=== PATIENT | female | born 1990 | race Caucasian/White ===

== ENCOUNTER → 2016-11-07 | Outpatient (CLI) | payer OTHER ==
[~2016-11-07] MED LIST: ACET1TAB43 PO; ASCO100T6 PO; BETA6VIA IJ; DOCU100C37 PO; FERR-65 PO; IBUP-1773 PO; PREN-37 PO
--- NOTE | 2016-11-07 14:21 | Diagnostic Imaging Report ---
PROCEDURE: US Thyroid. TECHNIQUE: Multiple real-time grayscale images were obtained of the thyroid in various projections. INDICATION: Abnormal labs. FINDINGS: The right thyroid lobe is 4.9 x 1.3 x 1.8 cm. The left lobe is 4.0 x 1.6 x 1.6 cm. The thyroid parenchyma is fairly homogeneous. There is a nonspecific hypoechoic nodule measuring 0.3 x 0.3 x 0.4 cm in the inferior aspect of the left thyroid lobe. No definite internal vascularity seen. IMPRESSION: Nonspecific tiny 0.4 cm hypoechoic nodule in the inferior left thyroid lobe, of questionable significance. Dictated by: Dictated on workstation # [id number]
== END ==
LOC: RAD 13:39
PROVIDERS: ATTEND Family Medicine
DX: E04.1 Nontoxic single thyroid nodule (principal)
CPT/HCPCS: 76536

== ENCOUNTER → 2017-04-06 | Outpatient (CLI) | payer BC, OTHER | LOC: RT 08:12 | PROVIDERS: ATTEND Nurse Practitioner Family | DX: R56.9 Unspecified convulsions (principal) | CPT/HCPCS: 95819 ==

== ENCOUNTER 2017-04-12 10:00 | Outpatient (CLI) | payer BC | END 2017-04-12 10:20 | disposition home or self-care (01) | LOC: SLEEP 10:00 | PROVIDERS: ATTEND Nurse Practitioner Family | DX: G47.10 Hypersomnia, unspecified (principal); R06.83 Snoring ==

== ENCOUNTER → 2017-04-17 | Outpatient (CLI) | payer BC ==
[~2017-04-17] MED LIST changes: +GADOBUTROL 15 MMOL/15 ML (GADAVIST) VIAL IV ONE
== END ==
LOC: RAD 10:44
PROVIDERS: ATTEND Nurse Practitioner Family
DX: R56.9 Unspecified convulsions (principal); R51 Headache
CPT/HCPCS: 70553

== ENCOUNTER 2018-12-06 07:00 | Inpatient (IN) | payer BC, OTHER ==
[2018-12-06] VITALS (60 sets, daily range): BP systolic 102–142; BP diastolic 55–80
[~2018-12-06] VITALS: Ht 170.2 cm; Wt 122.0 kg
[~2018-12-06 07:00] MED LIST changes: -GADOBUTROL 15 MMOL/15 ML (GADAVIST) VIAL IV ONE
--- NOTE | 2018-12-06 07:00 | NUR ---
Arrived to unit ambulates self accompanied by s.o. for induction of labor. Wt obtained and to room 320. gowned and to bed. monitors on. oriented to room, call light and surroundings.
[2018-12-06] MEDS ORDERED: OXYTOCIN/NORMAL SALINE 500 ML IV SCH ×2 (08:25→21:05)
[2018-12-06] MEDS ORDERED: D5 LR IV SOLUTION 1,000 ML IV ONE (08:30)
[2018-12-06] MEDS ORDERED: OXYTOCIN/NORMAL SALINE 500 ML IV ONE (08:30)
[2018-12-06 08:32] LABS: BASOPHILS % (AUTO) 0 % (0-10); EOSINOPHILS % (AUTO) 0 % (0-10); HEMATOCRIT 33 % (35-52); HEMOGLOBIN 11.3 G/DL (11.5-16.0); LYMPHOCYTES # (AUTO) 1.9 X 10^3 (1.0-4.0); LYMPHOCYTES % (AUTO) 24 % (12-44); MEAN CORPUSCULAR HEMOGLOBIN 32 PG (25-34); MEAN CORPUSCULAR HGB CONC 34 G/DL (32-36); MEAN CORPUSCULAR VOLUME 94 FL (80-99); MEAN PLATELET VOLUME 11.1 FL (7.4-10.4); MONOCYTES # (AUTO) 0.7 X 10^3 (0.0-1.0); MONOCYTES % (AUTO) 10 % (0-12); NEUTROPHILS # (AUTO) 5.1 X 10^3 (1.8-7.8); NEUTROPHILS % (AUTO) 66 % (42-75); PLATELET COUNT 192 10^3/uL (130-400); WHITE BLOOD COUNT 7.7 10^3/uL (4.3-11.0)
[2018-12-06] MEDS: D5 LR IV SOLUTION 1,000 ML IV SCH ×2 (08:41→15:25)
[2018-12-06] MEDS ORDERED: LEVE100015 PO (10:04)
[2018-12-06] MEDS ORDERED: FOLI1TAB24 PO (10:04)
[2018-12-06] MEDS ORDERED: SUFENTA 0.6MCG/ML BUPIVA 0.125 100 ML ONE (10:06)
[2018-12-06] MEDS: EPIDURAL (SUFENTA 0.6MCG/ML BUPIVA 0.125%) 100 ML BAG EPI SCH ×2 (10:49→18:23)
[2018-12-06] MEDS ORDERED: LACTATED RINGERS 1,000 ML IV SCH (10:56)
[2018-12-06] MEDS ORDERED: METOCLOPRAMIDE INJ 10 MG/2 ML (REGLAN) IV PRN (11:00)
[2018-12-06] MEDS ORDERED: ONDANSETRON 4 MG/2 ML (SDV) Z0FRAN IV PRN (11:00)
[2018-12-06] MEDS ORDERED: NALOXONE 0.4 MG/ML 1 ML (NARCAN) VIAL IV PRN ×2 (11:00)
[2018-12-06] MEDS ORDERED: diphenhydrAMINE 50 MG/ML INJ (BENADRYL) IV PRN (11:00)
[2018-12-06] MEDS ORDERED: LIDOCAINE/EPI 2% 1:200,00 (XYLOCAINE) 10 ML VIAL ONE (19:27)
--- NOTE | 2018-12-06 19:52 | NUR ---
Dr. Vergara called and informed that pt is 9cm with a small lip of cervix remaining. Informed that pt is starting to feel uncomfortable and is having variable decelerations down to the 80s with contractions. orders epidural to be turned off and states that he will be out shortly.
--- NOTE | 2018-12-06 20:00 | NUR ---
Epidural turned off at this time.
--- NOTE | 2018-12-06 20:40 | NUR ---
2039: Pericare provided to pt. Fundus massaged at this time. Fundus is firm, midline and one under umbilicus. Moderate bleeding noted. 2054: Fundus is firm, midline and one under umbilicus. Minimal bleeding noted. 2114: Fundus is firm, midline and one under umbilicus. Minimal bleeding noted. Ice pack applied to perineum at this time. 2134: Fundus is firm, midline and at umbilicus. Moderate bleeding noted. 2209: Fundus is firm, midline and at umbilicus. Minimal bleeding noted. Pt. is sat up to eat at this time. Ice water refilled. Pt states that she can move her legs. Nurse explains to pt that when she is done eating we will use the restroom and move to new room.
[2018-12-06] MEDS ORDERED: KETOROLAC 30 MG/ML VIAL ONE (21:06)
[2018-12-06] MEDS ORDERED: MEASLES,MUMPS,RUBELLA 1 EA INJ SC ONE (21:15)
[2018-12-06] MEDS ORDERED: ONDANSETRON 4 MG/2 ML (SDV) Z0FRAN IVP PRN (21:15)
[2018-12-06] MEDS ORDERED: oxyCODONE/APAP 5/325MG (PERCOCET 5) TABLET PO PRN (21:15)
[2018-12-06] MEDS ORDERED: TETANUS,DIPTH,PERTUSS P/F (BOOSTRIX) 0.5 ML VIAL IM ONE (21:15)
[2018-12-06] MEDS: KETOROLAC 30 MG/ML VIAL IVP PRN (21:15)
[2018-12-06] MEDS ORDERED: BENZOCAINE/MENTHOL (DERMOPLAST) 56 ML CAN TP PRN (21:15)
[2018-12-06 22:43] LABS: ABG BASE EXCESS -1.7 MMOL/L (-2.5-2.5); ABG OXYGEN SATURATION 25 % (94-100); ABG PCO2 58 MMHG (35-45); ABG PO2 25 MMHG (79-93); CORD ARTERIAL BLOOD PH 7.25 (7.35-7.45); INSPIRED O2 N
--- NOTE | 2018-12-06 23:00 | NUR ---
Pt. gotten out of bed with nurse standby assist. Transferred to bathroom. Xiao care given. Pad and underwear put on. Clean gown put on. Pt states that she was only able to void a small amount still leaving her bladder feeling full. Xiao bottle and Dermoplast spray reviewed with pt at this time. Pt then transferred to wheelchair and moved to room.
--- NOTE | 2018-12-07 00:20 | NUR ---
Nurse at pt bedside. Pt states that she was able to void a significant amount. Fundus massaged at this time. Firm and one under umbilicus. Midline. Minimal bleeding noted at this time.
[2018-12-07 02:28] VITALS: BP 122/80
--- NOTE | 2018-12-07 02:54 | OPERATIVE REPORT ---
DATE OF SERVICE: 12/06/2018 DELIVERY NOTE The patient delivered by term spontaneous vaginal delivery, viable female with Apgars of 8 and 9 at 1 and 5 minutes respectively, weight of 8 pounds 3 ounces. time of 20:26. Cord blood gas is pending. The patient delivered over a second-degree perineal laceration under epidural analgesia augmented with local analgesia and the perineal body. The infant was bulb suctioned on delivery of the head and again on completion of delivery. The umbilical cord was doubly clamped, father cut the cord, the baby was passed to mom's abdomen. Placenta delivered fairly promptly spontaneously Cheng. It was normal with a 3-vessel cord. The cervix, vagina, rectum, perineum were examined and found intact except for the second-degree perineal laceration that was repaired with a single suture of 2-0 Vicryl Rapide in the usual manner without difficulty to good reapproximation and good hemostasis. The patient tolerated the delivery and the repair well and remained in the LDR for recovery. The baby remained with the mom. Job ID: [id number] DocumentID: [id number] Dictated Date: 12/06/2018 20:42:00 Client Support Manager Date: 12/07/2018 02:53:04 Dictated By: KIN THORNE MD
[2018-12-07] MEDS: KETOROLAC 30 MG/ML VIAL IVP PRN (03:29)
[2018-12-07 06:21] VITALS: BP 116/75
--- NOTE | 2018-12-07 07:25 | Progress Note-Standard ---
Standard Progress Note Progress Notes/Assess & Plan Date Seen by a Provider: December 07, 2018 Time Seen by a Provider: 07:24 Progress/Assessment & Plan This patient is without complaint. She is ambulating, voiding, tolerating oral intake well and has good pain control. Patient denies chest pain, denies shortness of breath, denies nausea vomiting, denies headache. Vital Signs 12/07/18 06:21 Temp 98.2 Pulse 71 Resp 18 B/P (MAP) 116/75 (89) Pulse Ox 97 O2 Delivery Room Air Vital signs are stable. Patient is afebrile. Fundus is firm below the umbilicus and nontender. Extremities show no clubbing cyanosis. There is no Homans sign. Assessment and plan day number 1 status post term spontaneous vaginal delivery doing well. Plan is routine, last period day and discharged home tomorrow Final Diagnosis Term spontaneous vaginal delivery at 38 4/7 weeks' gestation KIN THORNE MD December 07, 2018 07:24
[2018-12-07] MEDS ORDERED: DOCU100C37 PO (07:27)
[2018-12-07] MEDS ORDERED: OXYC1TAB87 PO (07:27)
[2018-12-07] MEDS ORDERED: IBUP-1780 PO (07:27)
--- NOTE | 2018-12-07 07:28 | Discharge Instructions ---
Discharge Instructions Discharge Medications New, Converted or Re-Newed RX: RX on Chart Patient Instructions Patient Instructions: as directed Return to The Hospital For: As directed Activity & Diet Discharge Diet: No Restrictions Activity as Tolerated: No Orders-Post D/C & Referrals Follow Up Appt: Call to make follow up appt. for patient in 4 weeks. Activity Per routine post vaginal delivery instructions. Please call in RX to patient pharmacy. Diet as tolerated Patient may shower or tub bathe as desired. KIN THORNE MD December 07, 2018 07:28
--- NOTE | 2018-12-07 07:30 | NUR ---
Dr Vergara here to see pt. No new orders rec'd
[2018-12-07 09:49] VITALS: BP 127/61
[2018-12-07] MEDS: IBUPROFEN 800 MG (MOTRIN) TAB PO SCH ×3 (09:50→21:34)
[2018-12-07] MEDS: DOCUSATE SODIUM 100 MG (COLACE) CAP PO SCH ×2 (09:51→21:34)
--- NOTE | 2018-12-07 10:03 | Anesthesia-Regional Post-Op ---
Regional Patient Condition Mental Status: Alert, Oriented x3 Circulation: Same as Pre-Op Headache: Absent Sensation: Full Recovery Post Op Complications Complications None Follow Up Care/Instructions Patient Instructions None needed. Anesthesia/Patient Condition Patient is doing well, no complaints, stable vital signs, no apparent adverse anesthesia problems. No complications reported per nursing. D/C home per [facility] [place] Criteria: Yes NICK LINDA CRNA December 07, 2018 10:03
[2018-12-07 12:00] VITALS: BP 118/60
[2018-12-07 16:05] VITALS: BP 123/64
[2018-12-07 20:23] VITALS: BP 121/61
[2018-12-08 02:15] VITALS: BP 111/72
[2018-12-08] MEDS: IBUPROFEN 800 MG (MOTRIN) TAB PO SCH ×2 (03:30→09:53)
--- NOTE | 2018-12-08 09:45 | NUR ---
Dr Vergara called to unit for update. planning to round, but not until closer to 1200. Pt may D/C to home prior to rounding if pt desires.
[2018-12-08 09:52] VITALS: BP 123/66
[2018-12-08] MEDS: DOCUSATE SODIUM 100 MG (COLACE) CAP PO SCH (09:53)
--- NOTE | 2018-12-08 10:00 | NUR ---
Scripts discussed with pt, pt desires to take own ibuprofen and stool softener vs calling in new scripts.
--- NOTE | 2018-12-08 10:50 | NUR ---
Discharge instructions explained to pt with copy provided to pt. Pt notified of need to schedule follow up. Pt verbalizes understanding of instructions, denies questions or concerns at this time. Extra pads provided per pt request. Pt notified of need for nursery instructions as well prior to leaving.
--- NOTE | 2018-12-08 13:06 | Progress Note-Standard ---
Standard Progress Note Progress Notes/Assess & Plan Date Seen by a Provider: December 08, 2018 Time Seen by a Provider: 13:05 Progress/Assessment & Plan This patient is without complaint. She is ambulating, voiding, tolerating oral intake well and has good pain control. Patient denies chest pain, denies shortness of breath, denies nausea vomiting, denies headache. Vital Signs 12/07/18 06:21 Temp 98.2 Pulse 71 Resp 18 B/P (MAP) 116/75 (89) Pulse Ox 97 O2 Delivery Room Air Vital signs are stable. Patient is afebrile. Fundus is firm below the umbilicus and nontender. Extremities show no clubbing cyanosis. There is no Homans sign. Assessment and plan day number 1 status post term spontaneous vaginal delivery doing well. Plan is routine, last period day and discharged home tomorrow December 08, 2018 Patient is without complaint. She is ambulating, voiding, tolerating oral intake well and has good pain control. Patient is requesting discharge home. Vital Signs Date Time Temp Pulse Resp B/P (MAP) Pulse Ox O2 Delivery O2 Flow Rate FiO2 12/08/18 09:52 98.4 67 18 123/66 (85) 98 Room Air 12/08/18 02:15 98.3 63 16 111/72 (85) 98 Room Air 12/07/18 20:23 98.4 66 18 121/61 (81) 97 Room Air 12/07/18 16:05 98.2 70 18 123/64 (83) 98 Room Air Vital signs are stable. Patient is afebrile. Fundus is firm below the umbilicus and nontender. Examination showed no clubbing cyanosis. There is no Homans sign. Assessment and plan day number 2 status post spontaneous vaginal delivery doing well. Plans for discharge home with follow-up in clinic Final Diagnosis Current spontaneous vaginal delivery KIN THORNE MD December 08, 2018 13:06
--- NOTE | 2018-12-08 13:10 | NUR ---
Pt ambulates off unit accompanied by Ivone recio RN, to private vehicle. All personal belongings with pt. No s/s of distress noted.
--- NOTE | 2018-12-14 09:02 | History & Physical ---
History and Physical Date Seen by Provider: December 06, 2018 Time Seen by Provider: 07:30 This patient is a 28-year-old white female who is admitted at 38 weeks gestation for induction of labor secondary to her history of seizure disorder with progression of her symptoms in spite of anti-epileptic medication. Her neurologist had indicated that delivery would be appropriate as early as deemed practical. Patient was admitted for Pitocin induction. She denied ruptured membranes or bleeding. Her GBS culture was negative. Allergies none Medications are vitamins and Keppra Medical social and surgical histories are per the antepartum record HEENT exam is normal Neck supple no lymphadenopathy no thyromegaly Abdomen is gravid soft nontender nondistended Extremities show no clubbing cyanosis. There is some pretibial pitting edema that was normal. Patient had no Homans sign. Pelvic exam was per the nurse's exam Assessment and plan term at 38 weeks' gestation in a patient with epilepsy on Keppra. She required increasing her Keppra for control of symptoms. She is admitted at 38 weeks gestation for labor induction 38 weeks gestation with seizure disorder Allergies and Home Medications Allergies Coded Allergies: No Known Drug Allergies (Unverified , 06/05/14) Home Medications Docusate Sodium 100 Mg Capsule, 100 MG PO BID Prescribed by: KIN TINOCO on 12/07/18726 Folic Acid 1 Mg Tablet, 1 MG PO QID, (Reported) Ibuprofen 800 Mg Tablet, 800 MG PO Q6HR Prescribed by: KIN TINOCO on 12/07/18726 Levetiracetam 1,000 Mg Tablet, 1,000 MG PO BID, (Reported) Oxycodone HCl/Acetaminophen 1 Each Tablet, 1-2 TAB PO Q4H PRN for PAIN-MODERATE Prescribed by: KIN TINOCO on 12/07/18726 Vit/Iron Fumarate/FA 1 Each Tablet, 1 EACH PO DAILY, (Reported) Patient Home Medication List Home Medication List Reviewed: Yes Clinical Quality Measures DVT/VTE Risk/Contraindication: Risk Factor Score Per Nursin RFS Level Per Nursing on Admit: 1=Low/No VTE PPX KIN THORNE MD Dec 14, 2018 09:02
== END 2018-12-08 13:10 | disposition home or self-care (01) | DRG 807 ==
LOC: LDRP 07:15
PROVIDERS: ADMIT Obstetrics & Gynecology; ATTEND Obstetrics & Gynecology
PROC: 10E0XZZ Delivery of Products of Conception, External Approach (ICD-10-PCS; principal; 2018-12-06)
PROC: 0KQM0ZZ Repair Perineum Muscle, Open Approach (ICD-10-PCS; 2018-12-06)
DX: O99.353 Diseases of the nervous system complicating pregnancy, third trimester (principal); G40.909 Epilepsy, unspecified, not intractable, without status epilepticus; O70.1 Second degree perineal laceration during delivery; Z3A.38 38 weeks gestation of pregnancy; Z37.0 Single live birth; Z79.899 Other long term (current) drug therapy
CPT/HCPCS: 36415; 82805; 85025; 86850; 86900; 86901; 88307

== ENCOUNTER 2019-09-04 05:40 | Outpatient (CLI) | payer OTHER ==
[~2019-09-04] VITALS: Ht 170.2 cm; Wt 102.3 kg
[~2019-09-04 05:40] MED LIST changes: +FOLI1TAB24 PO; +IBUP-1780 PO; +LEVE100015 PO; +OXYC1TAB87 PO
[2019-09-04] MEDS ORDERED: ESCI20TA45 PO (12:15)
[2019-09-04] MEDS ORDERED: LEVE500T6 PO (12:15)
[2019-09-04] MEDS ORDERED: SPIR25TA5 PO (12:15)
== END 2019-09-04 13:10 | disposition home or self-care (01) ==
LOC: PREOP 05:40
PROVIDERS: ATTEND Obstetrics & Gynecology
DX: Z01.818 Encounter for other preprocedural examination (principal)

== ENCOUNTER 2020-01-09 19:15 | Emergency (ER) | payer OTHER ==
[~2020-01-09] VITALS: Ht 172 cm; Wt 111.0 kg
[~2020-01-09 19:15] MED LIST changes: +DOCU-143 PO; +ESCI20TA45 PO; +LEVE500T6 PO; +SPIR25TA5 PO
[2020-01-09] MEDS ORDERED: LACTATED RINGERS 1,000 ML IV ONE (19:27)
[2020-01-09] MEDS ORDERED: KETOROLAC 30 MG/ML VIAL IVP ONE (19:30)
--- NOTE | 2020-01-09 19:32 | ED EENT ---
History of Present Illness General Chief Complaint: Oral/Throat Problems Stated Complaint: DIFFICULTY SWALLOWING Source: patient Exam Limitations: no limitations History of Present Illness Date Seen by Provider: Jan 09, 2020 Time Seen by Provider: 19:13 Initial Comments Patient presents ER by private conveyance with chief complaint of 2 days grossly worsening sore throat difficulty swallowing fluids inability to eat. She went and saw Dr. Santana's office earlier today and was given a shot of steroids and put on antibiotic twice a day. She's taken 1 dose of antibiotics. She feels it's gotten worse even since seeing her primary care office. No past history of surgery on her nose or throat. No known sick contacts. No fever but she had temperature of 100.0 earlier today. No cough shortness of air. He says it is painful to swallow her own secretions. She did not choke on any foreign object. No history of GERD or EGDs. She doesn't history of hysterectomy after having found a polyp. She is using multiple [id number]-kyh-sfydyxq lozenges and medicines. Allergies and Home Medications Allergies Coded Allergies: No Known Drug Allergies (Unverified , 06/05/14) Home Medications Docusate Sodium 100 Mg Capsule, 100 MG PO BID Prescribed by: KIN TINOCO on 09/12/19 1235 Escitalopram Oxalate 20 Mg Tablet, 20 MG PO DAILY, (Reported) Ibuprofen 800 Mg Tablet, 800 MG PO Q6H PRN for PAIN Prescribed by: KIN TINOCO on 09/12/19 1235 Levetiracetam 500 Mg Tablet, 1,000 MG PO BID, (Reported) take 2 (500mg) tabs Oxycodone HCl/Acetaminophen 1 Each Tablet, 1 TAB PO Q4H Prescribed by: KIN TINOCO on 09/12/19 1235 Spironolactone 25 Mg Tablet, 25 MG PO DAILY, (Reported) Patient Home Medication List Home Medication List Reviewed: Yes Review of Systems Review of Systems Constitutional: No chills, No diaphoresis Eyes: Denies Blindness, Denies Blurred Vision, Denies Drainage Ears: Denies Dizziness, Denies Pain Nose: denies clots, denies congestion Mouth: denies pain, denies swelling Throat: pain, swelling; denies neck stiffness; hoarse, painful swallowing, difficulty with fluids Respiratory: No cough, No phlegm Cardiovascular: No chest pain, No edema Gastrointestinal: No abdominal pain, No nausea, No vomiting All Other Systems Reviewed Negative Unless Noted: Yes Past Yyjmfrt-Lstydz-Yvsgej Hx Patient Social History Alcohol Use: Occasionally Uses Recreational Drug Use: No Smoking Status: Current Everyday Smoker Type Used: Cigarettes (0.25 ppd) Recent Foreign Travel: No Contact w/Someone Who Travel: No Recent Hopitalizations: No Immunizations Up To Date Tetanus Booster (TDap): Less than 5yrs PED Vaccines UTD: Yes Date of Influenza Vaccine: Apr 19, 2016 Seasonal Allergies Seasonal Allergies: No Past Medical History Surgeries: Yes ([place]) Respiratory: No Cardiac: No Neurological: Yes (last seizure 2016) Reproductive Disorders: No Sexually Transmitted Disease: No HIV/AIDS: No Genitourinary: No Gastrointestinal: No Musculoskeletal: No Endocrine: No HEENT: No Cancer: No Psychosocial: No Integumentary: No Blood Disorders: No Adverse Reaction/Blood Tranf: No Family Medical History Diabetes mellitus ([facility]) Hypertension (MOTHER, FATHER, BROTHER) Physical Exam Vital Signs Vital Signs - First Documented 01/09/20 19:19 Temp 37.2 Pulse 98 Resp 18 B/P (MAP) 146/97 (113) Pulse Ox 99 O2 Delivery Room Air Height, Weight, BMI Height: 5'7.00" Weight: 268lbs. 14.0oz. 121.970727xd; 35.31 BMI Method:Stated General Appearance: WD/WN, mild distress Eyes: bilateral eye normal inspection, bilateral eye PERRL, bilateral eye EOMI Ears: bilateral ear auricle normal, bilateral ear canal normal, bilateral ear TM normal Nose: normal inspection; No active bleeding, No discharge Mouth/Throat: tonsillar exudate, tonsillar swelling, other (retropharyngeal erythema and injection) Neck: tender lateral (bilaterally with some shoddy bilateral cervical lymphadenopathy anteriorly) Cardiovascular: normal peripheral pulses, regular rate, rhythm, tachycardia Respiratory: lungs clear, normal breath sounds, no respiratory distress, no accessory muscle use Gastrointestinal: normal bowel sounds, non tender Neurologic/Psychiatric: alert, normal mood/affect, oriented x 3 Skin: normal color, warm/dry Progress/Results/Core Measures Results/Orders Lab Results Laboratory Tests Test 01/09/20 19:26 01/09/20 19:31 Range/Units Group A Streptococcus Screen NEGATIVE NEGATIVE White Blood Count 21.1 H 4.3-11.0 10^3/uL Red Blood Count 4.46 4.35-5.85 10^6/uL Hemoglobin 14.8 11.5-16.0 G/DL Hematocrit 43 35-52 % Mean Corpuscular Volume 96 80-99 FL Mean Corpuscular Hemoglobin 33 25-34 PG Mean Corpuscular Hemoglobin Concent 35 32-36 G/DL Red Cell Distribution Width 12.5 10.0-14.5 % Platelet Count 271 130-400 10^3/uL Mean Platelet Volume 10.3 7.4-10.4 FL Neutrophils (%) (Auto) 81 H 42-75 % Lymphocytes (%) (Auto) 14 12-44 % Monocytes (%) (Auto) 5 0-12 % Eosinophils (%) (Auto) 1 0-10 % Basophils (%) (Auto) 0 0-10 % Neutrophils # (Auto) 17.0 H 1.8-7.8 X 10^3 Lymphocytes # (Auto) 3.0 1.0-4.0 X 10^3 Monocytes # (Auto) 1.0 0.0-1.0 X 10^3 Eosinophils # (Auto) 0.1 0.0-0.3 10^3/uL Basophils # (Auto) 0.1 0.0-0.1 10^3/uL Neutrophils % (Manual) 83 % Lymphocytes % (Manual) 11 % Monocytes % (Manual) 6 % Eosinophils % (Manual) 0 % Basophils % (Manual) 0 % Band Neutrophils 0 % Toxic Granulation 1+ Sodium Level 140 135-145 MMOL/L Potassium Level 3.8 3.6-5.0 MMOL/L Chloride Level 106 98-107 MMOL/L Carbon Dioxide Level 21 21-32 MMOL/L Anion Gap 13 5-14 MMOL/L Blood Urea Nitrogen 10 7-18 MG/DL Creatinine 0.82 0.60-1.30 MG/DL Estimat Glomerular Filtration Rate > 60 BUN/Creatinine Ratio 12 Glucose Level 104 70-105 MG/DL Calcium Level 9.6 8.5-10.1 MG/DL Corrected Calcium 9.4 8.5-10.1 MG/DL Total Bilirubin 0.8 0.1-1.0 MG/DL Aspartate Amino Transf (AST/SGOT) 13 5-34 U/L Alanine Aminotransferase (ALT/SGPT) 16 0-55 U/L Alkaline Phosphatase 94 40-136 U/L Total Protein 8.6 H 6.4-8.2 GM/DL Albumin 4.3 3.2-4.5 GM/DL My Orders Orders - VIVIANA OROZCO Ct Neck (Soft Tissue) W (01/09/20 19:25) Ed Iv/Invasive Line Start (01/09/20 19:25) Cbc With Automated Diff (01/09/20 19:25) Comprehensive Metabolic Panel (01/09/20 19:25) Rapid Strep A Screen (01/09/20 19:25) Ketorolac Injection (Toradol Injection) (01/09/20 19:30) Ed Iv/Invasive Line Start (01/09/20 19:27) Lactated Ringers (Lr 1000 Ml Iv Solution (01/09/20 19:27) Iohexol Injection (Omnipaque 350 Mg/Ml 1 (01/09/20 19:45) Received Contrast (Hold Metformin- Contr (01/09/20 19:45) Sodium Chloride Flush (Catheter Flush Sy (01/09/20 19:45) Ns (Ivpb) (Sodium Chloride 0.9% Ivpb Bag (01/09/20 19:45) Manual Differential (01/09/20 19:31) Ed Iv/Invasive Line Start (01/09/20 20:42) Rocephin 1 Gm Iv (1x Dose) (01/09/20 20:45) Ns 1l Iv (01/09/20 20:45) Medications Given in ED Current Medications Medications Dose Ordered Sig/Saurav Route Start Time Stop Time Status Last Admin Dose Admin Iohexol 100 ml ONCE ONCE IV 01/09/20 19:45 01/09/20 19:46 DC 01/09/20 20:06 75 ML Ketorolac Tromethamine 30 mg ONCE ONCE IVP 01/09/20 19:30 01/09/20 19:31 DC 01/09/20 19:35 30 MG Lactated Ringer's 1,000 ml @ 0 mls/hr Q0M ONCE IV 01/09/20 19:27 01/09/20 19:28 DC 01/09/20 19:35 0 MLS/HR Sodium Chloride 10 ml NEEDED PRN IV 01/09/20 19:45 01/09/20 20:06 10 ML Sodium Chloride 100 ml ONCE ONCE IV 01/09/20 19:45 01/09/20 19:46 DC 01/09/20 20:06 80 ML Vital Signs/I&O 01/09/20 19:19 Temp 37.2 Pulse 98 Resp 18 B/P (MAP) 146/97 (113) Pulse Ox 99 O2 Delivery Room Air Progress Progress Note #1: Time: 20:19 Progress Note Elevated white count either from infection or her recent steroid shot. Patient's blood pressure was elevated as well as her heart rate is right around 100 while the examiner was in the room. Shortly after leaving the room however her heart rate dropped down to the 80s and stayed in the 70-80 range since then. Suspect whitecoat syndrome. Progress Note #2: Time: 20:40 Progress Note The patient's feeling much better. Toradol since he helping. Vitals are aseptic. Plan to give her a second liter fluids, Rocephin and switch up her antibiotics from Keflex to Augmentin with outpatient follow-up next week with the primary care doctor. Return precautions were counseled. Diagnostic Imaging Diagonstic Imaging: CT (with IV contrast) Plain Films/CT/US/NM/MRI: other (neck) Comments NAME: BONY BLEVINS [facility] REC#: [id number] PT STATUS: REG ER : 1990 PHYSICIAN: VIVIANA OROZCO MD ADMIT DATE: 01/09/20/ER Draft Date of Exam:01/09/20 CT NECK (SOFT TISSUE) W PROCEDURE: CT neck soft tissue with contrast. TECHNIQUE: Multiple contiguous axial images were obtained through the neck after the administration of contrast. Auto Exposure Controls were utilized during the CT exam to meet ALARA standards for radiation dose reduction. INDICATION: Swollen throat x3 days, unable to swallow. CORRELATION STUDY: None FINDINGS: There is rather prominent asymmetric edema through a large portion of the hypopharynx. This is slightly greater posteriorly into the left of midline. A definitive drainable abscess is not suggested. Nasopharynx unremarkable. Slight prominent appearance about the tonsillar fossa. No tonsillar abscess. Epiglottis is perhaps slightly thickened as well. Vocal cords and subglottic airway are patent. No airway compromise. No abnormal retropharyngeal gas collection. The parapharyngeal fat planes are preserved. There is rather prominent, likely reactive bilateral cervical lymph nodes noted. The paranasal sinuses are clear. The visualized lung apices appearing unremarkable. IMPRESSION: 1. Prominent edema noted about the large portion of the hypopharynx likely inflammatory and infectious pharyngitis. While there is diffuse edema, definitive encapsulated drainable abscess is not suggested at this time. Close clinical and short-term follow-up imaging correlation is recommended. Prominent reactive cervical lymphadenopathy. Dictated on workstation # [id number] Dict: 01/09/202007 Trans: 01/09/202028 [facility] [id number] Interpreted by: ALEKS PARKER DO Electronically signed by: Reviewed: Reviewed by Me Departure Impression Primary Impression: Laryngitis without obstruction, acute Disposition: 01 HOME, SELF-CARE Condition: Stable Departure-Patient Inst. Decision time for Depature: 20:45 Referrals: RENETTA SANTANA MD (PCP/Family) Primary Care Physician Patient Instructions: Laryngitis (DC) Add. Discharge Instructions: Drink lots of fluids. Sports drinks are encouraged. Tylenol 1000 mg every 8 hours as necessary for fever or pain. Ibuprofen 800 mg every 8 hours as necessary for fever or pain. Throat lozenges or Chloraseptic spray may be helpful for pain. Tomorrow start Augmentin 1 tablet twice a day for the next week. Return to the ER promptly if you begin to express difficulty breathing, inability to swallow or other worrisome symptoms. Plan to follow up with your primary care doctor early next week for reexam ination. All discharge instructions reviewed with patient and/or family. Voiced understanding. Scripts Amoxicillin/Potassium Clav (Augmentin 875-125 Tablet) 1 Each Tablet 1 EACH PO BID for 7 Days, #14 TAB 0 Refills Prov: VIVIANA OROZCO 01/09/20 VIVIANA OROZCO Jan 09, 2020 19:32
[2020-01-09 19:38] LABS: BASOPHILS # (AUTO) 0.1 10^3/uL (0.0-0.1); BASOPHILS % (AUTO) 0 % (0-10); EOSINOPHILS # (AUTO) 0.1 10^3/uL (0.0-0.3); EOSINOPHILS % (AUTO) 1 % (0-10); HEMATOCRIT 43 % (35-52); HEMOGLOBIN 14.8 G/DL (11.5-16.0); LYMPHOCYTES % (AUTO) 14 % (12-44); MEAN CORPUSCULAR HEMOGLOBIN 33 PG (25-34); MEAN CORPUSCULAR HGB CONC 35 G/DL (32-36); MEAN CORPUSCULAR VOLUME 96 FL (80-99); MEAN PLATELET VOLUME 10.3 FL (7.4-10.4); MONOCYTES % (AUTO) 5 % (0-12); NEUTROPHILS % (AUTO) 81 % (42-75); PLATELET COUNT 271 10^3/uL (130-400); RED CELL DISTRIBUTION WIDTH 12.5 % (10.0-14.5); WHITE BLOOD COUNT 21.1 10^3/uL (4.3-11.0)
[2020-01-09] MEDS ORDERED: NS 100 ML (IVPB) BAG IV ONE (19:45)
[2020-01-09] MEDS ORDERED: CATHETER FLUSH 10 ML SYR IV PRN (19:45)
[2020-01-09] MEDS ORDERED: IOHEXOL 350 MG/ML 100 ML (OMNIPAQUE 350) VIAL IV ONE (19:45)
[2020-01-09] MEDS ORDERED: HOLD METFORMIN - RECEIVED CONTRAST 20 ML VIAL IV SCH (19:45)
[2020-01-09 19:53] LABS: BAND NEUTROPHILS 0 %; BASOPHILS % (MANUAL) 0 %; EOSINOPHILS % (MANUAL) 0 %; LYMPHOCYTES % (MANUAL) 11 %; MONOCYTES % (MANUAL) 6 %; NEUTROPHILS % (MANUAL) 83 %; TOXIC GRANULATION/VACUOLAZATIO 1+
[2020-01-09 19:57] LABS: ALANINE AMINOTRANSFERASE 16 U/L (0-55); ALBUMIN 4.3 GM/DL (3.2-4.5); ALKALINE PHOSPHATASE 94 U/L (40-136); BILIRUBIN,TOTAL 0.8 MG/DL (0.1-1.0); BUN/CREATININE RATIO 12; CALCIUM 9.6 MG/DL (8.5-10.1); CARBON DIOXIDE 21 MMOL/L (21-32); CHLORIDE 106 MMOL/L (98-107); CREATININE SERUM 0.82 MG/DL (0.60-1.30); GFR ESTIMATED > 60; GLUCOSE 104 MG/DL (70-105); POTASSIUM 3.8 MMOL/L (3.6-5.0); SODIUM 140 MMOL/L (135-145); TOTAL PROTEIN 8.6 GM/DL (6.4-8.2)
--- NOTE | 2020-01-09 20:31 | Diagnostic Imaging Report ---
PROCEDURE: CT neck soft tissue with contrast. TECHNIQUE: Multiple contiguous axial images were obtained through the neck after the administration of contrast. Auto Exposure Controls were utilized during the CT exam to meet ALARA standards for radiation dose reduction. INDICATION: Swollen throat x3 days, unable to swallow. CORRELATION STUDY: None FINDINGS: There is rather prominent asymmetric edema through a large portion of the hypopharynx. This is slightly greater posteriorly into the left of midline. A definitive drainable abscess is not suggested. Nasopharynx unremarkable. Slight prominent appearance about the tonsillar fossa. No tonsillar abscess. Epiglottis is perhaps slightly thickened as well. Vocal cords and subglottic airway are patent. No airway compromise. No abnormal retropharyngeal gas collection. The parapharyngeal fat planes are preserved. There is rather prominent, likely reactive bilateral cervical lymph nodes noted. The paranasal sinuses are clear. The visualized lung apices appearing unremarkable. IMPRESSION: 1. Prominent edema noted about the large portion of the hypopharynx likely inflammatory and infectious pharyngitis. While there is diffuse edema, definitive encapsulated drainable abscess is not suggested at this time. Close clinical and short-term follow-up imaging correlation is recommended. Prominent reactive cervical lymphadenopathy. Dictated by: Dictated on workstation # [id number]
[2020-01-09] MEDS ORDERED: NS IV 1000 ML 1,000 ML IV ONE (20:45)
[2020-01-09] MEDS ORDERED: cefTRIAXone FOR IV USE 1,000 MG in WATER (STERILE) FOR INJECTION 10 ML IV ONE (20:45)
[2020-01-09] MEDS ORDERED: AMOX-358 PO (20:48)
[2020-01-09 21:30] VITALS: BP 129/77
== END 2020-01-09 21:30 | disposition home or self-care (01) ==
LOC: EDUNIT# 19:15 → ER 19:16
DX: J04.0 Acute laryngitis (principal); F17.210 Nicotine dependence, cigarettes, uncomplicated; Z82.49 Family history of ischemic heart disease and other diseases of the circulatory system
CPT/HCPCS: 36415; 70491; 80053; 85007; 85027; 87430